=== PATIENT | male | born 1990 | race Caucasian/White ===

== ENCOUNTER 2018-09-28 15:03 | Emergency (ER) | payer MEDICAID ==
[~2018-09-28] VITALS: Ht 193 cm; Wt 86.2 kg
[2018-09-28 15:20] VITALS: BP_SYST 118
[2018-09-28] MEDS ORDERED: IBUPROFEN 800 MG TABLET PO ONE (17:00)
[2018-09-28 18:18] VITALS: BP_SYST 115
== END 2018-09-28 18:18 | disposition home or self-care (01) ==
LOC: SED 15:03
DX: S90.32XA Contusion of left foot, initial encounter (principal); S00.83XA Contusion of other part of head, initial encounter; V29.9XXA Motorcycle rider (driver) (passenger) injured in unspecified traffic accident, initial encounter; Y93.89 Activity, other specified; Y92.410 Unspecified street and highway as the place of occurrence of the external cause; Y99.8 Other external cause status
CPT/HCPCS: 70110-TC; 99283